=== PATIENT | female | born 1990 | race Caucasian/White ===

== ENCOUNTER 2022-07-18 10:57 | Outpatient (CLI) | payer OTHER | END 2022-07-18 12:17 | disposition home or self-care (01) | LOC: PRENATAL 10:57 | PROVIDERS: ATTEND Obstetrics & Gynecology Maternal & Fetal Medicine | DX: O35.9XX0 Maternal care for (suspected) fetal abnormality and damage, unspecified, not applicable or unspecified (principal); O35.3XX0 Maternal care for (suspected) damage to fetus from viral disease in mother, not applicable or unspecified; O26.849 Uterine size-date discrepancy, unspecified trimester; Z3A.20 20 weeks gestation of pregnancy ==

== ENCOUNTER 2022-08-17 14:20 | Outpatient (CLI) | payer OTHER ==
[2022-08-17] MEDS ORDERED: PRENATAL TABLE1 EAC1 PO (14:42)
[2022-08-17] MEDS ORDERED: COLACE100 MG PO (14:43)
[2022-08-17] MEDS ORDERED: RHOGAM ULTR1500 UNIT IM (15:54)
== END 2022-08-17 15:48 | disposition home or self-care (01) ==
LOC: OBS/DEL 14:20
PROVIDERS: ATTEND Student in an Organized Health Care Education/Training Program
DX: O26.852 Spotting complicating pregnancy, second trimester (principal); Z3A.24 24 weeks gestation of pregnancy; Z88.0 Allergy status to penicillin

== ENCOUNTER 2022-10-10 09:50 | Outpatient (CLI) | payer OTHER ==
[~2022-10-10 09:50] MED LIST: COLACE100 MG PO; PRENATAL TABLE1 EAC1 PO; RHOGAM ULTR1500 UNIT IM
== END 2022-10-10 10:26 | disposition home or self-care (01) ==
LOC: PRENATAL 09:50
PROVIDERS: ATTEND Obstetrics & Gynecology Maternal & Fetal Medicine
DX: O26.849 Uterine size-date discrepancy, unspecified trimester (principal); O36.8199 Decreased fetal movements, unspecified trimester, other fetus; O36.5990 Maternal care for other known or suspected poor fetal growth, unspecified trimester, not applicable or unspecified; Z3A.32 32 weeks gestation of pregnancy

== ENCOUNTER 2022-10-31 10:18 | Outpatient (CLI) | payer OTHER | END 2022-10-31 12:04 | disposition home or self-care (01) | LOC: PRENATAL 10:18 | PROVIDERS: ATTEND Obstetrics & Gynecology Maternal & Fetal Medicine | DX: O26.849 Uterine size-date discrepancy, unspecified trimester (principal); O36.8199 Decreased fetal movements, unspecified trimester, other fetus; O36.5990 Maternal care for other known or suspected poor fetal growth, unspecified trimester, not applicable or unspecified; Z3A.35 35 weeks gestation of pregnancy ==

== ENCOUNTER 2022-11-18 05:44 | Inpatient (IN) | payer OTHER ==
[~2022-11-18] VITALS: Ht 160 cm; Wt 64.4 kg
[2022-11-20] MEDS ORDERED: RHOGAM ULTR1500 UNIT IM (12:08)
[2022-11-20] MEDS ORDERED: NAPR500T14 PO (12:09)
== END 2022-11-20 15:06 | disposition home or self-care (01) | DRG 807 ==
LOC: OB/GYN 05:44 → LDR 05:44 → OB/GYN 13:43
PROVIDERS: ADMIT Student in an Organized Health Care Education/Training Program; ATTEND Student in an Organized Health Care Education/Training Program
PROC: 10E0XZZ Delivery of Products of Conception, External Approach (ICD-10-PCS; principal; 2022-11-18)
PROC: 0KQM0ZZ Repair Perineum Muscle, Open Approach (ICD-10-PCS; 2022-11-18)
PROC: 0W8NXZZ Division of Female Perineum, External Approach (ICD-10-PCS; 2022-11-18)
PROC: 4A1HXCZ Monitoring of Products of Conception, Cardiac Rate, External Approach (ICD-10-PCS; 2022-11-18)
DX: O70.1 Second degree perineal laceration during delivery (principal); Z37.0 Single live birth; Z3A.37 37 weeks gestation of pregnancy; Z20.822 Contact with and (suspected) exposure to COVID-19